=== PATIENT | male | born 1990 | race Caucasian/White ===

== ENCOUNTER 2025-01-21 12:02 | Emergency (ER) | payer BC, SELFPAY ==
[2025-01-21 12:04] VITALS: BP 137/84
--- NOTE | 2025-01-21 12:37 | ED.GENMED ---
History of Present Illness
General
Chief Complaint: DVT/Possible Blood Clot
Source: patient and significant other
Time Seen by Provider: 01/21/25 12:17
History of Present Illness
History of Present Illness:
34-year-old male who presents with swelling of the right hand. The patient states that he was playing golf on Wednesday and has been having some wrist pain. He states it was hurting while golfing and it got little worse. He then noticed today that
his hand was swollen. Went to urgent care who sent him here for evaluation after negative x-rays. He reportedly had a PE in the past that was unprovoked. States he is no longer on blood thinners and doing well. He clearly reports when he volar
flexes his wrist he has pain at the dorsal wrist. No shortness of breath. No other upper extremity swelling. No leg symptoms
Past History
Past History
ED Past Medical History: Other (Pulmonary embolism)
ED Past Surgical History: Other (Dental surgery)
Social History
Tobacco: Non-smoker
Alcohol: Other
Drug: None
Personal:
Living: with family
Employment: Employed
Family History
Family History: Other
Phy Exam
Physical Exam
Physical Exam:
CONSTITUTIONAL Vital signs reviewed, Patient alert and oriented to person, place and time. Well-appearing
HEAD atraumatic, normocephalic.
EYES eyelids normal to inspection, Extraocular muscles intact, Conjunctiva normal, Sclera normal.
NECK normal range of motion, Trachea midline, no jugular venous distention.
RESP no respiratory distress
BACK No obvious deformities
UPPER EXTREMITY Gross Range of motion normal, gross motor strength normal. There is tenderness to the dorsal wrist. Question small wrist effusion. Swelling noted to dorsal hand with no redness. Normal distal cap refill. Forearm, elbow and upper
arm are all normal and without edema, swelling, redness or pain or tenderness
LOWER EXTREMITY Gross range of motion normal, Gross motor strength normal
NEURO Speech normal, No focal motor deficits include, Harshil coma scale 15, Memory normal, Cranial Nerves intact to screening exam.
SKIN Skin warm, dry, and normal in color.
PSYCHIATRIC Patient oriented to person place and time, Normal affect.
Course
Orders/Labs/Results
Orders:
Orders
01/21/25 12:07
US Periph Venous UPPER Ext RT Urgent
Comment:
Reason For Exam: swelling of hand, clot history
01/21/25 13:44
Splints/Slings/Crut- Treatment ONCE
Location: Right
Type of Splint: [place] Wrist
Vital Signs
Initial and Last Documented VS:
Initial Vital Signs
Temp Pulse Resp BP Pulse Ox
98.5 F 70 18 137/84 96
01/21/25 12:04 01/21/25 12:04 01/21/25 12:04 01/21/25 12:04 01/21/25 12:04
Last Documented Vital Signs
Temp Pulse Resp BP Pulse Ox
98.5 F 70 18 137/84 96
01/21/25 12:04 01/21/25 12:04 01/21/25 12:04 01/21/25 12:04 01/21/25 12:04
MDM/Problems Addressed
Differential Diagnosis Includes:
Tendinitis, wrist injury, arthritis, unlikely DVT
MDM/Problems Addressed:
Wrist sprain, tendinitis
*Radiology
Radiology exam reviewed: radiology read reviewed
*Pulse Oximetry
Patient hypoxic: no
*Critical Care Note
Total Time (30-74mins, 75-104mins- exclusive of procedures): Not Applicable
Data Reviewed
Source: patient and spouse (States that she did not suspect DVT and was a little bit surprised that the patient was advised to come)
Further Testing Considered But Not Given:
Considered x-rays but patient already had x-rays by urgent care
Patient Management
Escalation/DeEscalation of care consider admission/obs:
Negative for DVT. Apply Velcro wrist splint and recommended rest, ice and elevation.
ED Attending Note
-
Portions of this chart may have been created with voice recognition software.� Occasional wrong word or��sound alike� substitutions may have occurred due to the inherent limitations of voice recognition software.
Discharge Plan
Departure
Patient Disposition: Home (Routine Discharge)
Date of Disposition: 01/21/25
Time of Disposition: 13:45
Patient with high blood pressure during this ER visit?: No
Discharge Problem:
Injury of wrist, right
Prescriptions:
No Action
Xarelto DVT-PE Treat 30d Start 15 mg (42)- 20 mg (9) tablets,dose pack
15 ea PO BID Qty: 51 0RF
Rx Instructions:
15 mg orally; 15 mg BID x 21 days and then 20 mg QD
Referrals:
Luis Cadena MD [Family Provider] -
Activity Restrictions/Additional Instructions:
Please rest, ice and elevate your swollen hand and wrist. Please see your doctor in the next 3 to 5 days for follow-up and reevaluation. If symptoms persist, orthopedic follow-up may be necessary. Please use ibuprofen as needed
Interventions
Interventions:
*Risk Screen - Suicide Last Done: 01/21/25 12:07
*General Assessment Last Done: 01/21/25 12:07
*Neglect/Abuse Screening Last Done: 01/21/25 12:07
*ED COVID-19 Vaccine History Last Done: 01/21/25 12:07
Discharge Date and Time
Print Language: DUTCH
== END 2025-01-21 14:45 | disposition home or self-care (01) ==
LOC: EMR 12:02
PROVIDERS: EMERGENCY PHYSICIAN Emergency Medicine; FAMILY PHYSICIAN Family Medicine
DX: S69.91XA Unspecified injury of right wrist, hand and finger(s), initial encounter (principal); X50.3XXA Overexertion from repetitive movements, initial encounter
CPT/HCPCS: 99284; 29125; 93971